=== PATIENT | male | born 1985 | race Hispanic/Latino ===

== ENCOUNTER 2019-10-07 02:35 | Emergency (ER) | payer SELFPAY ==
[2019-10-07] MEDS ORDERED: ACETAMINOPHEN EXTRA STRENGTH 500 MG TABLET ONE (03:11)
[2019-10-07 04:00] LABS: BASOPHILS % (AUTO) 0.3 % (0.0-5.0); EOSINOPHILS % (AUTO) 1.2 % (0.0-8.0); HEMATOCRIT 42.2 % (42-54); LYMPHOCYTES % (AUTO) 24.6 % (21.0-51.0); MEAN CORPUSCULAR HEMOGLOBIN 29.9 pg (27.0-33.0); MEAN CORPUSCULAR HGB CONC 34.1 g/dL (32.0-36.0); MEAN CORPUSCULAR VOLUME 87.6 fL (79-99); MONOCYTES % (AUTO) 8.7 % (3.0-13.0); NEUTROPHILS % (AUTO) 64.6 % (40.0-77.0); PLATELET COUNT (AUTO) 174 K/uL (130-400); RED BLOOD CELL COUNT(AUTO) 4.82 MIL/uL (4.50-6.20); RED CELL DISTRIBUTION WIDTH 12.4 % (11.0-15.5); WHITE BLOOD COUNT (AUTO) 3.5 K/uL (4.8-10.8)
[2019-10-07 04:11] LABS: CREATININE 1.1 mg/dL (0.5-1.5); POTASSIUM 3.3 mmol/L (3.5-5.1)
[2019-10-07 04:15] LABS: ALBUMIN 3.9 g/dL (3.5-5.0); BILIRUBIN,TOTAL 0.3 mg/dL (0.2-1.0); TOTAL PROTEIN, SERUM 8.2 g/dL (6.0-8.3)
[2019-10-07 05:18] LABS: APPEARANCE,URINE Clear (CLEAR); BILIRUBIN,URINE Negative (NEGATIVE); COLOR,URINE Yellow (YELLOW); GLUCOSE, URINE (UA) TRACE mg/dL (NEGATIVE); KETONES,URINE Negative (NEGATIVE); LEUKOCYTE ESTERASE ,URINE Negative (NEGATIVE); NITRATE,URINE Negative (NEGATIVE); OCCULT BLOOD,URINE Negative (NEGATIVE); PROTEIN,URINE Negative (NEGATIVE)
[2019-10-07 05:39] LABS: BACTERIA,URINE Rare /HPF (None Seen); RBC,URINE 0-1 /HPF (0-1); SQUAMOUS EPITHELIAL CELL,UR 0-2 /HPF (0-2); WBC,URINE 0-1 /HPF (0-1)
[2019-10-08 09:13] LABS: HEPATITIS A ANTIBODY IGM Negative (Negative); HEPATITIS B CORE IGM Negative (Negative); HEPATITIS Bs ANTIGEN SCREEN P Negative (Negative)
== END 2019-10-07 05:46 | disposition home or self-care (01) ==
LOC: EDH 02:35
DX: B34.9 Viral infection, unspecified (principal); K75.9 Inflammatory liver disease, unspecified; I10 Essential (primary) hypertension
CPT/HCPCS: 36415; 71045; 80053; 80074; 81001; 83690; 85025; 87040; 87804

== ENCOUNTER 2023-12-31 02:39 | Emergency (ER) | payer SELFPAY ==
[~2023-12-31] VITALS: Ht 167.6 cm; Wt 98.4 kg
[2023-12-31 03:05] LABS: RAPID GROUP A STREP negative (NEGATIVE)
[2023-12-31 03:07] LABS: SARS-CoV-2, RNA, NAAT NEGATIVE SARS CoV-2 (NEGATIVE)
[2023-12-31 03:15] LABS: INFLUENZA TYPE A Negative For Type A (NEGATIVE); INFLUENZA TYPE B Negative For Type B (NEGATIVE)
[2023-12-31] MEDS: guaiFENesin/dextroMETHORphan 1 EACH TAB.SR.12H PO ONE (03:53)
[2023-12-31] MEDS: Solu-medROL 125MG VIAL IM ONE (03:55)
[2023-12-31] MEDS: ceTIRIzine HCL 5 MG TABLET PO SCH (04:16)
[2023-12-31] MEDS: 0.9%NACL 1000ML 1,000 ML IV ONE (06:23)
[2023-12-31 06:42] LABS: HEMATOCRIT 40.7 % (42-54); MEAN CORPUSCULAR HEMOGLOBIN 30.1 pg (27.0-33.0); MEAN CORPUSCULAR HGB CONC 34.9 g/dL (32.0-36.0); MEAN CORPUSCULAR VOLUME 86.4 fL (79-99); PLATELET COUNT (AUTO) 222 K/uL (130-400); RED BLOOD CELL COUNT(AUTO) 4.71 MIL/uL (4.50-6.20); RED CELL DISTRIBUTION WIDTH 12.2 % (11.0-15.5)
[2023-12-31 06:47] LABS: BASOPHILS # (AUTO) 0.03 K/uL (0.00-0.20); BASOPHILS % (AUTO) 0.4 % (0.0-5.0); EOSINOPHILS # (AUTO) 0.05 K/uL (0.00-0.70); EOSINOPHILS % (AUTO) 0.6 % (0.0-8.0); IMMATURE GRANULOCYTE ABSOLUTE 0.04 K/uL (0-1); LYMPHOCYTES # (AUTO) 1.2 K/uL (1.0-4.8); LYMPHOCYTES % (AUTO) 14.9 % (21.0-51.0); MONOCYTES # (AUTO) 0.4 K/uL (0.1-1.0); NEUTROPHILS # (AUTO) 6.1 K/uL (1.8-7.7); NEUTROPHILS % (AUTO) 78.6 % (40.0-77.0)
[2023-12-31 06:50] LABS: ALBUMIN 3.7 g/dL (3.5-5.0); BILIRUBIN,TOTAL 0.8 mg/dL (0.2-1.0); POTASSIUM 3.8 mmol/L (3.5-5.1); TOTAL PROTEIN, SERUM 8.8 g/dL (6.0-8.3)
[2023-12-31 07:30] VITALS: BP 138/87; PULSE 103; RESP 16; TEMP 100.3; O2SAT 98
[2023-12-31] MEDS: 0.9%NACL 1000ML 1,000 ML IV SCH (07:36)
[2023-12-31] MEDS: ketOROlac 30MG VIAL (30MG/ML) IVP ONE (07:39)
[2023-12-31] MEDS ORDERED: ceTIRIzine HCL 5 MG TABLET PO SCH (09:00)
== END 2023-12-31 08:35 | disposition home or self-care (01) ==
LOC: EDH 02:39
DX: B34.9 Viral infection, unspecified (principal); Z20.822 Contact with and (suspected) exposure to COVID-19
CPT/HCPCS: 99284; 96374; 71045; 87635; 96361; 80053; 85025; 87880; 87804 ×2; 36415; 96372; J7030 ×2; J2919; J1885

== ENCOUNTER 2024-07-22 16:29 | Emergency (ER) | payer SELFPAY ==
[~2024-07-22] VITALS: Ht 175.3 cm; Wt 90.7 kg
--- NOTE | 2024-07-22 16:35 | ERN ---
General Chief Complaint: Medical Clearance Stated Complaint: OTHER Time Seen by MD: 16:33 History of Present Illness Initial Comments 39-year-old male brought in by law enforcement and EMS for chest pain. Patient was in a confrontation/altercation with law enforcement. He was arrested. After the arrest he started complaining of chest pain. EMS was called. He was mildly tachycardic per EMS. They performed a 12 lead EKG which was normal. Patient reports he has been in his normal state of health otherwise. Allergies: Coded Allergies: No Known Drug Allergies (Unverified Allergy, Unknown, 10/07/19) Past Medical History Past Medical History: No Pertinent History Past Surgical History: None ROS Dictation CONSTITUTIONAL: No chills, no fever, no weakness, no diaphoresis, no malaise. HEAD/FACE: No signs of trauma. EENT: No eye pain, no blurred vision, no tearing, no double vision, no ear pain, no ear discharge, no nose pain, no nasal congestion, no throat pain, no throat swelling, no mouth pain. RESPIRATORY: No cough, no orthopnea, no SOB, no stridor, no wheezing. CARDIOVASCULAR: Chest pain GASTROINTESTINAL/ABDOMINAL: No abdominal pain, no constipation, no diarrhea, no nausea, no vomiting. GENITOURINARY: No abnormal discharge, no dysuria, no frequent urination, no hematuria. No complaints of pain in the genitals. MUSCULOSKELETAL: No back pain, no gout, no joint pain, no joint swelling, no muscle pain, no muscle stiffness, no neck pain. INTEGUMENTARY: No change in color, no change in hair/nails, no dryness, no lesion, no lumps, no rash. NEUROLOGICAL/PSYCH: No anxiety, not depressed, no emotional problem, no headache, no numbness, no pre-existing deficit, no history of seizures, no tremors, no weakness. HEMATOLOGIC/LYMPHATIC: Not anemic, no history of blood clots, no apparent bleeding, no bruising, glands not swollen. All Systems Negative, Except as Noted. Physical Exam Physical Exam Dictation VITAL SIGNS: Reviewed. GENERAL APPEARANCE: Alert, oriented x3, no acute distress. HEAD AND FACE: Non-traumatic. EYES: PERRL, pink conjunctivas, eyelid no trauma, anterior chamber clear. EARS: Pinnas intact and no signs of trauma or erythema. Ear canals clear and no discharge. TMs no erythema. NOSE: No discharge, no bleeding. OROPHARYNX: Mouth normal, teeth no caries, tongue pink. Pharynx clear, no erythema. Tonsils no exudates, no abscesses noted. Mucous membrane moist. NECK: Supple, non-tender, no thyromegaly, no masses, no JVD, no bruits. BREAST: Deferred. CHEST: No tenderness, no crepitus, no paradoxical movement, no retractions. LUNGS: Clear, well-ventilated, symmetric, no rales, no wheezing, no rhonchi, no stridor, good breath sounds bilaterally. HEART: Regular rate, regular rhythm, no murmur, no gallops. VASCULAR: No peripheral edema. ABDOMEN: Soft, positive bowel sounds, nondistended, no guarding, nontender, no rebound, no masses no hepatomegaly, no splenomegaly, no Ashraf's sign, no hernias. RECTAL: Deferred. GENITAL: Deferred. NEUROLOGICAL: Normal speech, gross motor function intact, gross sensory function intact. MUSCULOSKELETAL: Neck nontender, full range of motion, back nontender, full range of motion. EXTREMITIES: Nontender, full range of motion. SKIN: Color pink, dry, no turgor, no rash, no lacerations, no abrasions, no c ontusions. LYMPHATICS: Deferred. ED Course Orders Procedure Category Date Status Time 12 Lead Ekg Tracing- EKG 07/22/24 Verified Technical 16:33 DX & DISP Disposition: Discharge Departure Impression: Primary Impression: Chest pain, non-cardiac Condition: Stable Additional Instructions: The EKG is normal. Follow up with the primary doctor as needed. Return to the emergency department as needed. Referrals: COLIN LOPEZ MD (PCP) FANY BARR DO Jul 22, 2024 16:35
[2024-07-22 16:47] VITALS: BP 118/69; PULSE 104; RESP 20; TEMP 98.1; O2SAT 98
--- NOTE | 2024-07-22 20:58 | EKG ---
[facility] Test Date: 2024-07-22 Test Time: 16:34:24 Pat Name: MARIA E DAMON Department: [facility] Room: Gender: Male [employer]: [id number] : 1985 Requested By: FANY BARR Order Number: [id number] Reading MD: Measurements Intervals [place] Rate: 104 P: 51 RI: 151 QRS: 63 QRSD: 99 T: 55 QT: 317 QTc: 416 Interpretive Statements Sinus tachycardia Borderline ST elevation, anterior leads No previous ECG available for comparison Please click the below link to view image of tracing.
== END 2024-07-22 16:53 ==
LOC: EDH 16:29
DX: R07.89 Other chest pain (principal); R00.0 Tachycardia, unspecified
CPT/HCPCS: 93005; 99283